=== PATIENT | male | born 1985 | race Caucasian/White ===

== ENCOUNTER 2016-12-20 20:52 | Emergency (ER) | payer OTHER ==
[~2016-12-20] VITALS: Ht 165.1 cm; Wt 57.0 kg
[2016-12-20 20:57] VITALS: Ht 165.1 cm; Wt 57.0 kg
[2016-12-20] MEDS ORDERED: HYDROCODONE/APAP (5/325) TAB PO ONE (22:00)
--- NOTE | 2016-12-20 22:24 | RADRPT ---
PROCEDURE: CT head without Contrast CLINICAL INDICATION: Head pain TECHNIQUE: Transaxial images were made through the head on a multi-slice scanner without intraveno us contrast. Coronal and sagittal images were subsequently reformatted. One or more of the following dose reduction techniques were used: - Automated exposure control. - Adjustment of the mA and/or kV according to patient size. - Use of iterative reconstruction technique. Radiation dose: CTDIvol = 44.52 mGy; DLP = 720.23 mGy-cm. COMPARISON: None FINDINGS: The calvarium appears intact. The mastoid air cells and paranasal sinuses are well-aerated.. The ventricles are normal in size and there is no midline shift. No intracranial bleed, mass, or extra-axial fluid collection is identified. There is good rivera-white matter differentiation. IMPRESSION: Unremarkable noncontrast enhanced CT scan of the head. Physician Radha Date Time Electronically viewed and signed by Physician Radha on 12/20/2016 22:24 /
--- NOTE | 2016-12-20 23:48 | RADRPT ---
PROCEDURE: XR Cervical Spine. CLINICAL INDICATION: Neck pain TECHNIQUE: AP, lateral, and odontoid views of the cervical spine were obtained. COMPARISON: None available FINDINGS: Mineralization is within normal limits. No fracture or osseous lesion is identified. Vertebral bod ies are normal in height. Cervical lordosis is straightening. No vertebral subluxation is seen. I ntervertebral discs are normal in height. Facet joints appear maintained. Prevertebral soft tissue s, predental space and atlantoaxial joint are unremarkable. RPTAT:HJJR IMPRESSION: Straightening of the normal cervical lordosis possibly from positioning or muscle spasm, otherwise u nremarkable three-view cervical spine series. Physician Celestine Date Time Electronically viewed and signed by Physician Celestine on 12/20/2016 23:48 /
--- NOTE | 2016-12-20 23:50 | RADRPT ---
PROCEDURE: XR thoracic spine CLINICAL INDICATION: Back pain. TECHNIQUE: Upright AP, swimmers and lateral views of the thoracic spine were obtained. COMPARISON: None available FINDINGS: A mild dextroscoliosis is present with the apex at T9, the degree of curvature estimated at 10. No congenital anomalies are demonstrated Bone architecture and mineralization are preserved. Thoracic k yphosis is preserved. Vertebral body stature is intact. No significant disk space narrowing is pres ent. No lytic or blastic lesion is evident. The posterior elements and paraspinal soft tissues are normal. RPTAT:HJJR IMPRESSION: Mild approximately 10 degrees dextroscoliosis with the apex at T9, otherwise unremarkable thoracic s pine series. Physician Celestine Date Time Electronically viewed and signed by Physician Celestine on 12/20/2016 23:50 JR/
--- NOTE | 2016-12-20 23:51 | RADRPT ---
PROCEDURE: XR Lumbar Spine. CLINICAL INDICATION: Low back pain. TECHNIQUE: AP, cone-down lateral, and lateral views of the lumbar spine were obtained. COMPARISON: None. FINDINGS: Mineralization is within normal limits. Vertebral bodies are normal in height. No fracture is iden tified. Lumbar lordosis is preserved. No vertebral subluxation is seen. The intervertebral discs are normal in height. Paraspinal contours are unremarkable. RPTAT:HJJR IMPRESSION: Unremarkable three view series of the lumbar spine. Physician Celestine Date Time Electronically viewed and signed by Physician Celestine on 12/20/2016 23:50 /
[2016-12-21] MEDS ORDERED: HYDR-906 PO (00:03)
[2016-12-21] MEDS ORDERED: CYCL-319 PO (00:04)
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
== END 2016-12-21 00:37 | disposition left against medical advice (07) ==
LOC: FTE 20:52
DX: S39.92XA Unspecified injury of lower back, initial encounter (principal); R51 Headache; V49.49XA Driver injured in collision with other motor vehicles in traffic accident, initial encounter
CPT/HCPCS: 70450; 72040; 72072; 72100; Z7502; Z7610

== ENCOUNTER 2016-12-29 12:19 | Emergency (ER) | payer OTHER ==
[~2016-12-29] VITALS: Ht 165.1 cm; Wt 55.5 kg
[~2016-12-29 12:19] MED LIST: CYCL-319 PO; HYDR-906 PO
[2016-12-29 12:23] VITALS: Ht 165.1 cm; Wt 55.5 kg
--- NOTE | 2016-12-29 13:09 | RADRPT ---
PROCEDURE: CT Brain without contrast. CLINICAL INDICATION: Headaches. Neurologic deficit TECHNIQUE: A CT of the brain was performed on multidetector high-resolution CT scanner utilizing a xial sections from the skull base through the vertex without contrast. One or more of the following dose reduction techniques were used: Automated exposure control, Adjustment of the mA and/or kV acc ording to patient size, and/or use of iterative reconstruction technique. DOSE: CTDI = 45 mGy and the DLP = 720 mGy-cm. COMPARISON: Head CT 12/20/2016 FINDINGS: No acute intracranial hemorrhage, significant mass effect or midline shift. The rivera-white different iation is grossly preserved. The ventricles are normal in size for age. No significant opacification of the visualized paranasal sinuses or mastoids. IMPRESSION: No significant interval change. No acute intracranial findings. RPTAT: AA .Tacos Schultz MD, MD Date Time Electronically viewed and signed by .Tacos Schultz MD, MD on 12/29/2016 13:09 .T/
[2016-12-29] MEDS ORDERED: SOD CHLORIDE 0.9% 1,000 ML IV STA (13:38)
[2016-12-29] MEDS ORDERED: LEVETIRACETAM 1000 MG (PMX) 100 ML IVPB STA (13:38)
[2016-12-29] MEDS ORDERED: ONDA4TAB14 PO (14:09)
[2016-12-29] MEDS ORDERED: HYDR-906 PO (14:09)
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
== END 2016-12-29 14:16 | disposition home or self-care (01) ==
LOC: FTE 12:19
DX: R51 Headache (principal); F07.81 Postconcussional syndrome; R11.10 Vomiting, unspecified
CPT/HCPCS: 70450; Z7502; J1953; J7030

== ENCOUNTER 2017-10-04 12:16 | Emergency (ER) | END 2017-10-04 13:51 | disposition home or self-care (01) ==